=== PATIENT | female | born 1950 | race Caucasian/White ===

== ENCOUNTER → 2017-07-04 | Outpatient (CLI) | payer MEDICARE, BC ==
[~2017-07-04] MED LIST: ACET-1718 PO; ATOR10TA24 PO; ATOR20TA65 PO; CALC500T6 PO; DOCU-416 PO; HCTZ25 PO; HYDR12.556 PO; KET10 PO; LEV88 PO; LEVO-3 PO; LISI-355 PO; LOR5/325 PO; LUTE6TAB PO; METF-410 PO; MULT-1081 PO; OMEG-11 PO; OMEG500C5 PO; VITA1CAP46 PO
--- NOTE | 2017-07-08 16:37 | RADIOLOGY IMAGING REPORT ---
FACILITY: [facility] PATIENT NAME: XAVIER MARIN : [id number] MR: [id number] V: [id number] EXAM DATE: [id number] ORDERING PHYSICIAN: JOYCE COOMBS TECHNOLOGIST: Ivania Duron PROCEDURE:BILATERAL DIGITAL SCREENING MAMMOGRAM WITH CAD ASSISTED INTERPRETATION AND 3D BREAST TOMOSYNTHESIS. COMPARISON:Prior mammograms dated 12/01/14, 04/06/13 and 02/02/13. INDICATIONS:SCREENING FINDINGS: Moderately dense fibroglandular tissue is seen throughout the breasts. The parenchymal pattern has remained stable when allowing for difference in mammographic technique and patient positioning. There is no evidence of malignant appearing mass, malignant appearing calcification or other secondary sign of malignancy in either breast. DIAGNOSTIC CATEGORY 2--BENIGN FINDING. RECOMMENDATIONS: ROUTINE MAMMOGRAM AND CLINICAL EVALUATION. IMPRESSION: Bi-RADS 1: No significant abnormality is seen. Images were reviewed with R2CAD and 3D breast tomosynthesis. Dictated by: Tamara Holman M.D. on 07/04/2017 at 9:16 Transcribed by: YESSENIA on 07/04/2017 at 16:01 Approved by: Tamara Holman M.D. on 07/08/2017 at 16:36 [facility]
== END ==
LOC: MAMO 02:50
PROVIDERS: ATTEND Physician Assistant
DX: Z12.31 Encounter for screening mammogram for malignant neoplasm of breast (principal)
CPT/HCPCS: 77063; G0202; 77067

== ENCOUNTER → 2018-07-22 | Outpatient (CLI) | payer MEDICARE, BC ==
[~2018-07-22] MED LIST changes: -METF-410 PO; +METF-450 PO
--- NOTE | 2018-07-23 08:31 | RADIOLOGY IMAGING REPORT ---
FACILITY: [facility] PATIENT NAME: XAVIER MARIN : [id number] MR: [id number] V: [id number] EXAM DATE: ORDERING PHYSICIAN: JOYCE COOMBS TECHNOLOGIST: Mckenna Mcguire PROCEDURE:BILATERAL DIGITAL SCREENING MAMMOGRAM WITH CAD ASSISTED INTERPRETATION & 3D TOMOSYNTHESIS COMPARISON:Prior mammograms dated 07/04/17, 01/03/16, 12/01/14, 02/02/13 INDICATIONS:SCREENING FINDINGS: The breasts are heterogeneously dense which can obscure small masses. In the upper outer quadrant of the Left breast in the Left MLO view there has been development of a spiculated irregular high density mass for which spot compression views & Left breast Ultrasound is recommended. DIAGNOSTIC CATEGORY 0--INCOMPLETE: NEED ADDITIONAL IMAGING EVALUATION. RECOMMENDATIONS: ADDITIONAL MAMMOGRAPHIC VIEWS REQUIRED: LEFT BREAST. ULTRASOUND: LEFT BREAST. IMPRESSION: BIRADS 0: Incomplete, need additional imaging evaluation. There has been interval development of an irregular spiculated dense mass in the upper outer quadrant of the Left breast posterior third for which spot compression views & Left breast Ultrasound is recommended. Dictated by: Tamara Holman M.D. on 07/22/2018 at 14:28 Transcribed by: YISEL on 07/22/2018 at 14:32 Approved by: Tamara Holman M.D. on 07/23/2018 at 8:30 [facility]
== END ==
LOC: MAMO 00:45
PROVIDERS: ATTEND Physician Assistant
DX: Z12.31 Encounter for screening mammogram for malignant neoplasm of breast (principal); R92.8 Other abnormal and inconclusive findings on diagnostic imaging of breast
CPT/HCPCS: 77063; 77067

== ENCOUNTER → 2018-09-30 | Outpatient (CLI) | payer MEDICARE, BC ==
[~2018-09-30] MED LIST changes: +ASPI-1471 PO; +CALC-852 PO; +ESCI20TA38 PO
== END ==
LOC: US 00:50
PROVIDERS: ATTEND Internal Medicine Hematology & Oncology
DX: I35.8 Other nonrheumatic aortic valve disorders (principal); I34.0 Nonrheumatic mitral (valve) insufficiency
CPT/HCPCS: 93306

== ENCOUNTER 2018-11-17 10:56 | Inpatient (IN) | payer MEDICARE, BC ==
[~2018-11-17] VITALS: Ht 154.9 cm; Wt 71.7 kg
--- NOTE | 2018-11-17 11:04 | ER Report ---
History and Physical Time Seen By MD: 11:00 HPI/ROS This is a 67-year-old female presents to emergency department with CHIEF COMPLAINT: Possible Chemotherapy side effects HISTORY OF PRESENT ILLNESS: This is a very pleasant 67-year-old female presents to the emergency department for possible chemotherapy side effects. She is currently being treated for stage IIA left breast cancer. This is her 3rd round of chemotherapy. She is post-chemotherapy 8 days, adrimiacin and cytoxin. She has had low-grade fevers at home starting early this morning, the highest it was last night was 100.6. She has taken some Tylenol, she does not feel ill, af ebrile in the emergency department. She also states that she rubbed her nose and had a bloody nose for approximately 10 minutes, it did resolve. She also has some mild dysuria, no frequency or urgency. She also has some diarrhea, no blood noted in her stool. She also states it's not uncommon for her to have diarrhea and she is on metformin. She did look at the side effect sheet on the chemotherapy agents and some of the symptoms were noted on the sheet. She did contact the oncology clinic in [place] and they recommended coming to the emergency department for evaluation. She denies chest pain or shortness of breath. No nausea or vomiting. No rashes. She states she's been feeling great up until last night. REVIEW OF SYSTEMS: Constitutional: As above. Eyes: No discharge. ENT: No sore throat. Cardiovascular: No chest pain, no palpitations. Respiratory: No cough, no shortness of breath. Gastrointestinal: As above. Genitourinary: As above. Musculoskeletal: No back pain. Skin: No rashes. Neurological: No headache. Allergies: Coded Allergies: No Known Drug Allergies (Verified , 06/20/08) Home Meds Reported Medications Calcium Carbonate (CALCIUM) 500 Mg Tablet, 1500 MG PO 09/28/18 Escitalopram Oxalate (LEXAPRO) 20 Mg Tablet, 20 MG PO QDAY, TAB 09/28/18 Calcium Carbonate/Vitamin D3 (CALCIUM + VITAMIN D TABLET) 1 Each Tablet, 1 EACH PO BID 09/28/18 Aspirin (ASPIR 81) 81 Mg Tablet.dr, 81 MG PO QDAY, TAB 09/28/18 Levothyroxine Sodium (LEVOTHYROXINE SODIUM) 100 Mcg Tablet, 100 MCG PO QDAY, TAB 11/14/16 Anatone-3 Fatty Acids (FISH OIL) 500 Mg Capsule.dr, 1000 MG PO BID 11/14/16 Metformin Hcl (METFORMIN HCL) 500 Mg Tablet, 2 TAB PO BID, TAB 11/14/16 Lisinopril/Hydrochlorothiazide (LISINOPRIL-HCTZ 20-25 MG TAB) 1 Each Tablet, 1 EACH PO 11/14/16 Multivitamin (MULTI-DAY VITAMINS) 1 Each Tablet, 1 EACH PO QDAY 07/21/15 Atorvastatin Calcium (ATORVASTATIN CALCIUM) 20 Mg Tablet, 1 TAB PO HS, TAB 07/21/15 Lutein (LUTEIN) 6 Mg Tablet, 20 MG PO DAILY 03/03/13 Past Medical/Surgical History Patient has a past medical and surgical history of hypertension, hypercholesterolemia, colonoscopy with polyps removed, right breast biopsy, wrist fracture, toe fracture, but since the extraction, type II diabetes, hypothyroidism, depression, left breast cancer stage IIA, root canal. Reviewed Nurses Notes: Yes Hx Smoking: Yes (4-5 CIG PER WEEK) Smoking Status: Light Tobacco Smoker Hx Alcohol Use: Yes Constitutional Vital Sign - Last 24 Hours 11/17/18 11/17/18 11/17/18 11/17/18 11:06 12:00 12:30 13:00 Temp 98.2 Pulse 87 78 75 75 Resp 20 B/P (MAP) 113/57 122/88 (99) 116/76 (89) 110/70 (83) Pulse Ox 93 92 91 93 11/17/18 13:30 Pulse 77 B/P (MAP) 131/81 (98) Pulse Ox 90 Physical Exam General Appearance: The patient is alert, has no immediate need for airway protection and no signs of toxicity. Eyes: Pupils equal and round no pallor or injection. ENT, Mouth: Mucous membranes are moist. Respiratory: There are no retractions, lungs are clear to auscultation. Cardiovascular: Regular rate and rhythm. Grade 2 systolic murmur, no clicks or rubs. Gastrointestinal: Abdomen is soft and non tender, no masses, bowel sounds normal. Neurological: Alert and oriented 4. Moving all extremities. Following all c ommands. No focal neuro deficits. Skin: Warm and dry, no rashes. Musculoskeletal: Neck is supple non tender. Extremities are nontender, nonswollen and have full range of motion. DIFFERENTIAL DIAGNOSIS: After history and physical exam differential diagnosis was considered for sepsis, chemotherapeutic agent side effects, gastroenteritis, seasonal allergies, urinary tract infection. Medical Decision Making Data Points Result Diagram: 11/17/18 1207 11/17/18 1207 Laboratory Hematology Test 11/17/18 12:07 11/17/18 13:40 Red Blood Count 2.90 M/uL (4.17-5.56) Mean Corpuscular Volume 92.8 fL (80.0-96.0) Mean Corpuscular Hemoglobin 31.0 pg (26.0-33.0) Mean Corpuscular Hemoglobin Concent 33.5 g/dL (32.0-36.0) Red Cell Distribution Width 14.1 % (11.5-14.5) Mean Platelet Volume 6.7 fL (7.2-11.1) Neutrophils (%) (Auto) % (39.4-72.5) Lymphocytes (%) (Auto) % (17.6-49.6) Monocytes (%) (Auto) % (4.1-12.4) Eosinophils (%) (Auto) % (0.4-6.7) Basophils (%) (Auto) % (0.3-1.4) Nucleated RBC Relative Count (auto) /100WBC Neutrophils # (Auto) K/uL (2.0-7.4) Lymphocytes # (Auto) K/uL (1.3-3.6) Monocytes # (Auto) K/uL (0.3-1.0) Eosinophils # (Auto) K/uL (0.0-0.5) Basophils # (Auto) K/uL (0.0-0.1) Nucleated RBC Absolute Count (auto) K/uL Neutrophils % (Manual) 17 % (39.4-72.5) Band Neutrophils % 5 % Lymphocytes % (Manual) 52 % (17.6-49.6) Atypical Lymphocytes % 5 % Monocytes % (Manual) 18 % (4.1-12.4) Eosinophils % (Manual) 3 % (0.4-6.7) Basophils % (Manual) 0 % (0.3-1.4) Platelet Estimate Low Peripheral Blood Smear Yes Y/N Sodium Level 133 mmol/L (137-145) Potassium Level 3.3 mmol/L (3.5-5.0) Chloride Level 97 mmol/L (98-107) Carbon Dioxide Level 26 mmol/L (22-31) Blood Urea Nitrogen 7 mg/dl (7-18) Creatinine 0.60 mg/dl (0.52-1.04) Glomerular Filtration Rate Calc > 60.0 Random Glucose 86 mg/dl (75-110) Calcium Level 8.6 mg/dl (8.4-10.2) Total Bilirubin 0.5 mg/dl (0.2-1.3) Aspartate Amino Transf (AST/SGOT) 11 U/L (0-35) Alanine Aminotransferase (ALT/SGPT) 30 U/L (0-56) Alkaline Phosphatase 79 U/L (0-126) Total Protein 6.0 g/dl (6.3-8.2) Albumin 3.6 g/dl (3.5-5.0) Urine Color Straw Urine Clarity Clear Urine pH 7.0 pH (4.8-9.5) Urine Specific [place] 1.003 Urine Protein Negative mg/dL (NEGATIVE) Urine Glucose (UA) Negative mg/dL (NEGATIVE) Urine Ketones Negative mg/dL (NEGATIVE) Urine Blood Negative (NEGATIVE) Urine Nitrite Negative (NEGATIVE) Urine Bilirubin Negative (NEGATIVE) Urine Urobilinogen Negative mg/dL (0.2-1.9) Urine Leukocyte Esterase Negative (NEGATIVE) Urine RBC <1 /HPF (0-2/HPF) Urine WBC 4 /HPF (0-5/HPF) Urine Squamous Epithelial Cells Few /LPF (</=FEW) Urine Bacteria Negative /HPF (NONE-FEW) Urine Mucus None /HPF (NONE-FEW) Chemistry Test 11/17/18 12:07 11/17/18 13:40 White Blood Count 0.7 k/uL (4.5-11.0) Red Blood Count 2.90 M/uL (4.17-5.56) Hemoglobin 9.0 g/dL (12.0-16.0) Hematocrit 26.9 % (34.0-47.0) Mean Corpuscular Volume 92.8 fL (80.0-96.0) Mean Corpuscular Hemoglobin 31.0 pg (26.0-33.0) Mean Corpuscular Hemoglobin Concent 33.5 g/dL (32.0-36.0) Red Cell Distribution Width 14.1 % (11.5-14.5) Platelet Count 103 K/uL (150-450) Mean Platelet Volume 6.7 fL (7.2-11.1) Neutrophils (%) (Auto) % (39.4-72.5) Lymphocytes (%) (Auto) % (17.6-49.6) Monocytes (%) (Auto) % (4.1-12.4) Eosinophils (%) (Auto) % (0.4-6.7) Basophils (%) (Auto) % (0.3-1.4) Nucleated RBC Relative Count (auto) /100WBC Neutrophils # (Auto) K/uL (2.0-7.4) Lymphocytes # (Auto) K/uL (1.3-3.6) Monocytes # (Auto) K/uL (0.3-1.0) Eosinophils # (Auto) K/uL (0.0-0.5) Basophils # (Auto) K/uL (0.0-0.1) Nucleated RBC Absolute Count (auto) K/uL Neutrophils % (Manual) 17 % (39.4-72.5) Band Neutrophils % 5 % Lymphocytes % (Manual) 52 % (17.6-49.6) Atypical Lymphocytes % 5 % Monocytes % (Manual) 18 % (4.1-12.4) Eosinophils % (Manual) 3 % (0.4-6.7) Basophils % (Manual) 0 % (0.3-1.4) Platelet Estimate Low Peripheral Blood Smear Yes Y/N Glomerular Filtration Rate Calc > 60.0 Calcium Level 8.6 mg/dl (8.4-10.2) Total Bilirubin 0.5 mg/dl (0.2-1.3) Aspartate Amino Transf (AST/SGOT) 11 U/L (0-35) Alanine Aminotransferase (ALT/SGPT) 30 U/L (0-56) Alkaline Phosphatase 79 U/L (0-126) Total Protein 6.0 g/dl (6.3-8.2) Albumin 3.6 g/dl (3.5-5.0) Urine Color Straw Urine Clarity Clear Urine pH 7.0 pH (4.8-9.5) Urine Specific [place] 1.003 Urine Protein Negative mg/dL (NEGATIVE) Urine Glucose (UA) Negative mg/dL (NEGATIVE) Urine Ketones Negative mg/dL (NEGATIVE) Urine Blood Negative (NEGATIVE) Urine Nitrite Negative (NEGATIVE) Urine Bilirubin Negative (NEGATIVE) Urine Urobilinogen Negative mg/dL (0.2-1.9) Urine Leukocyte Esterase Negative (NEGATIVE) Urine RBC <1 /HPF (0-2/HPF) Urine WBC 4 /HPF (0-5/HPF) Urine Squamous Epithelial Cells Few /LPF (</=FEW) Urine Bacteria Negative /HPF (NONE-FEW) Urine Mucus None /HPF (NONE-FEW) Urinalysis Test 11/17/18 13:40 Urine Color Straw Urine Clarity Clear Urine pH 7.0 pH (4.8-9.5) Urine Specific [place] 1.003 Urine Protein Negative mg/dL (NEGATIVE) Urine Glucose (UA) Negative mg/dL (NEGATIVE) Urine Ketones Negative mg/dL (NEGATIVE) Urine Blood Negative (NEGATIVE) Urine Nitrite Negative (NEGATIVE) Urine Bilirubin Negative (NEGATIVE) Urine Urobilinogen Negative mg/dL (0.2-1.9) Urine Leukocyte Esterase Negative (NEGATIVE) Urine RBC <1 /HPF (0-2/HPF) Urine WBC 4 /HPF (0-5/HPF) Urine Squamous Epithelial Cells Few /LPF (</=FEW) Urine Bacteria Negative /HPF (NONE-FEW) Urine Mucus None /HPF (NONE-FEW) ED Course/Re-evaluation Clinical Indication for ER IV: Hydration, IV Access ED Course The patient was admitted to room. A history and physical were obtained. Differential diagnoses were considered. The patient's port was accessed. A CBC, CMP were obtained. CBC showing white count of 0.7, RBCs 2.9, hemoglobin and hematocrit 9 and 26. Neutrophil 17, percent bands 5. Sodium 133, potassium 3.3, normal UA.1 L normal saline bolus given. UA was collected. Total ANC is 154cells/microliter. Patient was updated on the results. I did speak with Deana Lerma the nurse practitioner that the patient has requested the oncology clinic as noted below, she recommended inpatient treatment with severe neutropenia and starting on prophylactic antibiotics once the cultures were obtained. I did speak with Dr. maribell mendoza, the hospitalist plant protection officer, he agreed with inpatient admission to the hospital. Patient was also agreeable with admission. Patient remained afebrile and nontoxic appearing while in the emergency department. 11/17/2018 1:09:40 pm I did speak with the patient's oncology team, specifically Deana Lerma the nurse practitioner in [place] at the [facility] oncology clinic, she recommended possible admission 24 hours observation, start on antibiotics, the Neulasta and should be "kicking in an approximately 2 days". 11/17/2018 1:47:[address] Llanes Still has accepted the patient into the hospitalist services. Decision to Disposition Date: November 17, 2018 Decision to Disposition Time: 13:43 Depart Departure Latest Vital Signs Vital Signs Date Time Temp Pulse Resp B/P (MAP) Pulse Ox O2 Delivery O2 Flow Rate FiO2 11/17/18 13:30 77 131/81 (98) 90 11/17/18 11:06 98.2 20 Impression: Primary Impression: Neutropenia Additional Impression: Stage II breast cancer Condition: Improved Disposition: Admitted from ER Referrals: JOYCE COOMBS PA-C (PCP) Problem Qualifiers Primary Impression: Neutropenia Neutropenia type: secondary to cancer chemotherapy Qualified Codes: D70.1 - Agranulocytosis secondary to cancer chemotherapy; T45.1X5A - Adverse effect of antineoplastic and immunosuppressive drugs, initial encounter Additional Impression: Stage II breast cancer Laterality: left Qualified Codes: C50.912 - Malignant neoplasm of unspecified site of left female breast ELIZABETH REDDY QUALITY ASSURANCE NURSE-BC November 17, 2018 11:04
[2018-11-17] MEDS ORDERED: NS(*) 0.9% 1000 ML BAG 1,000 ML IV ONE (11:30)
[2018-11-17] MEDS ORDERED: TETRACAIN/EPI/LIDO GEL 3ML SYR TP ONE (11:35)
[2018-11-17 12:27] LABS: PLATELET COUNT, AUTOMATED 103 K/uL (150-450)
[2018-11-17 14:23] VITALS: BP 113/60
[2018-11-17] MEDS ORDERED: LUTE20CA11 PO (14:33)
[2018-11-17] MEDS ORDERED: UBID100T PO (14:33)
[2018-11-17] MEDS ORDERED: NS(*) 0.9% 250 ML BAG 250 ML ONE (14:56)
[2018-11-17] MEDS ORDERED: LEVOFLOXACIN/D5W 750 MG/150 ML 150 ML IVPB ONE (15:00)
[2018-11-17] MEDS ORDERED: INFLUENZA VIRUS VAC 0.5ML SYR IM ONLY ONE (15:20)
[2018-11-17] MEDS ORDERED: FLUSH 10 ML SYR IVP PRN (15:20)
--- NOTE | 2018-11-17 16:19 | History & Physical ---
History of Present Illness Chief Complaint Fever History of Present Illness 67F admitted for fever with neutropenia. PMHx significant for breast Ca undergoing chemotherapy, HTN, DM. Reports single fever 100.6 at home. No other localizing infectious symptoms. Did just have diarrhea, though this is common after her treatment and generally self limited. She was noted to have 0.7 WBC on lab and ANC 160. She is at radha of WBC after chemotherapy and was given Neulasta, anticipate this would increase soon. History Problems: (1) Stage II breast cancer Status: Acute Home Meds Reported Medications Ubidecarenone (COENZYME Q10) 100 Mg Tablet, 100 MG PO QDAY 11/17/18 Lutein (LUTEIN) 20 Mg Capsule, 20 MG PO, CAPSULE 11/17/18 Escitalopram Oxalate (LEXAPRO) 20 Mg Tablet, 20 MG PO QDAY, TAB 09/28/18 Levothyroxine Sodium (LEVOTHYROXINE SODIUM) 100 Mcg Tablet, 100 MCG PO QDAY, TAB 11/14/16 [place]-3 Fatty Acids (FISH OIL) 500 Mg Capsule., 1999 INTLU PO BID 11/14/16 Metformin Hcl (METFORMIN HCL) 500 Mg Tablet, 1 TAB PO BID, TAB 11/14/16 Lisinopril/Hydrochlorothiazide (LISINOPRIL-HCTZ 20-25 MG TAB) 1 Each Tablet, 1 EACH PO 11/14/16 Atorvastatin Calcium (ATORVASTATIN CALCIUM) 20 Mg Tablet, 1 TAB PO HS, TAB 07/21/15 Discontinued Reported Medications Calcium Carbonate (CALCIUM) 500 Mg Tablet, 1500 MG PO 09/28/18 Calcium Carbonate/Vitamin D3 (CALCIUM + VITAMIN D TABLET) 1 Each Tablet, 1 EACH PO BID 09/28/18 Aspirin (ASPIR 81) 81 Mg Tablet., 81 MG PO QDAY, TAB 09/28/18 Multivitamin (MULTI-DAY VITAMINS) 1 Each Tablet, 1 EACH PO QDAY 07/21/15 Lutein (LUTEIN) 6 Mg Tablet, 20 MG PO DAILY 03/03/13 Allergies: Coded Allergies: No Known Drug Allergies (Verified , 06/20/08) Hx Smoking: Yes (4-5 CIG PER WEEK) Smoking Status: Light Tobacco Smoker Caffeine Intake: Coffee Caffeine/Cups Per Day: 3 CUPS PER DAY Hx Alcohol Use: Yes Hx Substance Use Disorder: No Social Drug Use: Never Review of Systems All Systems Reviewed/Normal: Yes, Except as Noted Constitutional: Fever Respiratory: No Shortness of Breath, No Cough Gastrointestinal: No Nausea, No Vomiting; Diarrhea Musculoskeletal: No Pain Exam Vital Signs Vital Signs Date Time Temp Pulse Resp B/P (MAP) Pulse Ox O2 Delivery O2 Flow Rate FiO2 11/17/18 14:42 95 11/17/18 14:36 Room Air 11/17/18 14:23 98.2 77 16 113/60 (77) General Appearance: Alert, Awake, No Acute Distress Neuro: No Gross deficits Cardiovascular: Normal Rhythm & Peripheral Pulses Respiratory: No Respiratory Distress GI: Abd Soft and Non-Tender Musculoskeletal: No Weakness/Pain Extremities: Soft and Non Tender, Warm, Pulses, Perfused Integumentary: Skin Intact without Lesion / Mass Medical Decision Making Data Points Result Diagram: 11/17/18 1207 11/17/18 1207 Assessment and Plan Problems: (1) Neutropenic fever Status: Acute Assessment & Plan: Reported to 100.6 last night or early am. Begin IV Levaquin with change to PO. If afebrile could discharge home and complete 5 day course antibiotic. (2) Stage II breast cancer Status: Acute Assessment & Plan: Undergoing chemotherapy. (3) DM (diabetes mellitus) Assessment & Plan: On chronic metformin. (4) HTN (hypertension) Assessment & Plan: On chronic lisinopril/HCTZ. (5) Pancytopenia Assessment & Plan: Secondary to chemotherapy. Will hold anticoagulant and ambulate early given platelet suppression Venous Thromboembolism Antithrombotics Is Pt On Any Antithrombotics?: No (early ambulation 2/2 thrombocytopenia.) Exam Sepsis Risk: No Definite Risk Problem Qualifiers (1) Stage II breast cancer: Laterality: left Qualified Codes: C50.912 - Malignant neoplasm of unspecified site of left female breast RENEE DOSHI DO November 17, 2018 16:18
[2018-11-17] MEDS: metFORMIN HCL 500 MG TAB PO SCH (16:54)
[2018-11-17] MEDS: ACETAMINOPHEN 325 MG TAB PO PRN (20:19)
[2018-11-17 20:20] VITALS: BP 114/55
[2018-11-17] MEDS ORDERED: ATORVASTATIN 10 MG TAB PO SCH (21:00)
[2018-11-18 00:10] VITALS: BP 109/46
[2018-11-18] MEDS ORDERED: LEVOTHYROXINE SOD 0.1 MG TAB PO SCH (06:00)
[2018-11-18] MEDS: ACETAMINOPHEN 325 MG TAB PO PRN (06:28)
[2018-11-18 06:50] LABS: PLATELET COUNT, AUTOMATED 100 K/uL (150-450)
[2018-11-18 06:55] VITALS: BP 121/56
[2018-11-18] MEDS: metFORMIN HCL 500 MG TAB PO SCH (08:17)
[2018-11-18] MEDS ORDERED: ESCITALOPRAM OXALATE 10 MG TAB PO SCH (09:00)
[2018-11-18] MEDS ORDERED: HYDROCHLOROTHIAZIDE 25 MG TAB PO SCH (09:00)
[2018-11-18] MEDS ORDERED: LISINOPRIL 20 MG TAB PO SCH (09:00)
[2018-11-18 09:08] VITALS: Ht 154.9 cm; Wt 71.7 kg
--- NOTE | 2018-11-18 11:00 | Hospitalist Depart ---
Discharge Summary Reason for Hosp/Final Diag: (1) Neutropenic fever Status: Acute Hospital Course & Plan: Reported to 100.6 11/16 evening. She was placed on IV Levaquin upon admission. She has been afebrile throughout admission. Her ANC is now 1000, upon admission was 160. She will be sent home with Levaquin for four additional days for a treatment course of 5 days. She had no source of infection identified throughout admission. (2) Stage II breast cancer Status: Acute Hospital Course & Plan: Undergoing chemotherapy. (3) DM (diabetes mellitus) Hospital Course & Plan: On chronic metformin. (4) HTN (hypertension) Hospital Course & Plan: On chronic lisinopril/HCTZ. (5) Pancytopenia Hospital Course & Plan: Secondary to chemotherapy. Will hold anticoagulant and ambulate early given platelet suppression Departure Latest Vital Signs Vital Signs 11/18/18 11/18/18 06:55 06:59 Temp 98.5 Pulse 76 Resp 14 B/P (MAP) 121/56 (77) Pulse Ox 95 O2 Delivery Room Air Weight (Pounds): 158 Result Diagram: 11/18/1861711/18/18617 Condition: Improved Discharge: Home, Self Care Discharge Instructions Home Meds Active Scripts Levofloxacin 750 Mg Tab (LEVOFLOXACIN 750 MG TAB) 750 Mg Tablet, 750 MG PO QDAY, #4 TAB Prov:JULIANA BRICE Dewayne [employer] 11/18/18 Reported Medications Ubidecarenone (COENZYME Q10) 100 Mg Tablet, 100 MG PO QDAY 11/17/18 Lutein (LUTEIN) 20 Mg Capsule, 20 MG PO, CAPSULE 11/17/18 Escitalopram Oxalate (LEXAPRO) 20 Mg Tablet, 20 MG PO QDAY, TAB 09/28/18 Levothyroxine Sodium (LEVOTHYROXINE SODIUM) 100 Mcg Tablet, 100 MCG PO QDAY, TAB 11/14/16 [place]-3 Fatty Acids (FISH OIL) 500 Mg Capsule., 1999 INTLU PO BID 11/14/16 Metformin Hcl (METFORMIN HCL) 500 Mg Tablet, 1 TAB PO BID, TAB 11/14/16 Lisinopril/Hydrochlorothiazide (LISINOPRIL-HCTZ 20-25 MG TAB) 1 Each Tablet, 1 E ACH PO 11/14/16 Atorvastatin Calcium (ATORVASTATIN CALCIUM) 20 Mg Tablet, 1 TAB PO HS, TAB 07/21/15 Discontinued Reported Medications Calcium Carbonate (CALCIUM) 500 Mg Tablet, 1500 MG PO 09/28/18 Calcium Carbonate/Vitamin D3 (CALCIUM + VITAMIN D TABLET) 1 Each Tablet, 1 EACH PO BID 09/28/18 Aspirin (ASPIR 81) 81 Mg Tablet.dr, 81 MG PO QDAY, TAB 09/28/18 Multivitamin (MULTI-DAY VITAMINS) 1 Each Tablet, 1 EACH PO QDAY 07/21/15 Lutein (LUTEIN) 6 Mg Tablet, 20 MG PO DAILY 03/03/13 Diet: Regular Activity: As Tolerated Special Instructions: Follow up with Cancer Center in 1 week. Take Levaquin for 4 additional days. Copies to: JOYCE COOMBS PA-C ; Venous Thromboembolism Antithrombotics Is Pt On Any Antithrombotics?: No (early ambulation 2/2 thrombocytopenia.) Problem Qualifiers (1) Stage II breast cancer: Laterality: left Qualified Codes: C50.912 - Malignant neoplasm of unspecified site of left female breast (2) HTN (hypertension): Hypertension type: essential hypertension Qualified Codes: I10 - Essential (primary) hypertension JULIANA BRICE November 18, 2018 11:00
[2018-11-18] MEDS ORDERED: LEVO750T27 PO (11:01)
[2018-11-18] MEDS ORDERED: HEPARIN FLSH (PORT) 500 UN/5ML ONE (11:22)
[2018-11-18] MEDS ORDERED: LEVOFLOXACIN 750 MG TAB PO SCH (15:00)
== END 2018-11-18 12:40 | disposition home or self-care (01) | DRG 810 ==
LOC: ER 11:08 → MED 13:59
PROVIDERS: ADMIT Internal Medicine; ATTEND Internal Medicine
DX: D70.1 Agranulocytosis secondary to cancer chemotherapy (principal); E11.9 Type 2 diabetes mellitus without complications; I10 Essential (primary) hypertension; T45.1X5A Adverse effect of antineoplastic and immunosuppressive drugs, initial encounter; C50.912 Malignant neoplasm of unspecified site of left female breast; E78.00 Pure hypercholesterolemia, unspecified; E03.9 Hypothyroidism, unspecified; F32.9 Major depressive disorder, single episode, unspecified; F17.210 Nicotine dependence, cigarettes, uncomplicated; Z79.84 Long term (current) use of oral hypoglycemic drugs
CPT/HCPCS: 81001; 82040; 82247; 82310; 82374; 82435; 82565; 82947; 84075; 84132; 84155; 84295; 84450; 84460; 84520; 85025; 87040; 87077; 87088; 87186; J1642; J1956; J7030; J7050

== ENCOUNTER → 2018-12-01 | Outpatient (CLI) | payer MEDICARE, BC ==
[2018-11-18 09:08] VITALS: BMI 29.9
[~2018-12-01] MED LIST changes: +LEVO750T27 PO; +LUTE20CA11 PO; +UBID100T PO
== END ==
LOC: LAB 14:20
DX: E87.6 Hypokalemia (principal)
CPT/HCPCS: 36415; 82310; 82374; 82435; 82565; 82947; 84132; 84295; 84520

== ENCOUNTER 2018-12-21 08:46 | Outpatient (RCR) | payer MEDICARE, BC ==
[2018-09-28 10:25] VITALS: BP 143/62
--- NOTE | 2018-09-28 13:36 | NUR ---
SW introduced the pt to the wig/prosthetic boutique. Pt may select a wig and/or prosthesis at another time.
--- NOTE | 2018-09-29 20:11 | ONCOLOGY CONSULTATION ---
EVENT DATE: September 28, 2018 CHIEF COMPLAINT/REASON FOR CONSULTATION Ms. Chung is a very pleasant 67-year-old female with stage IIA, ER/VA-positive, HER2/radha-normal breast cancer of the left breast. HISTORY OF PRESENT ILLNESS Edu presents for initial consultation. Please see her Oncology History below for more details. The patient is about to begin dose-dense AC, followed by Taxol assuming her echo is normal. The echo is scheduled for this coming Friday. She has port placement scheduled for tomorrow. She overall feels well. She has chemotherapy education coming up, and I reviewed the potential risk factors of Adriamycin and neuropathy of taxanes, as well as all potential side effects we would typically see with AC to T. These are including, but not limited to myelosuppression, nausea, vomiting, mouth sores, diarrhea, neutropenic fever, alopecia, neuropathy, cardiac issues, skin rash, allergic reaction, dystrophic nail changes, and other unforeseen issues that could be quite serious. We had an extensive discussion today about her history and her goals with care. She plans to start her therapy in [place] and may consider transitioning her therapy to [place] at some point during her care plan. I stressed to her that I am happy to have her treatment here or there, it is whatever she would prefer. I do agree with Dr. Marquis that if she does make that transition from [place] to [place], that we would like to try and do that once given concerns with insurance coverage with transferring back and forth. PAST MEDICAL HISTORY 1. Type 2 diabetes. 2. BARRAZA. 3. Hyperlipidemia. 4. Heart murmur. 5. Hypothyroidism. PAST ONCOLOGY HISTORY Patient was diagnosed with an ER/VA-positive, HER2/radha-normal left-sided breast cancer in early 2018. She had a mastectomy with sentinel lymph node biopsy on September 03, 2018. Two of six lymph nodes were positive with this sentinel lymph node biopsy. There was extracapsular extension. Her MammaPrint was high. Therefore, her risk of recurrence was quite high, but we could reduce that profoundly with the addition of endocrine therapy, chemotherapy, and adjuvant radiation therapy. She has reviewed this previously with Dr. Marquis, but it was overwhelming, and we reviewed much of it again today. SOCIAL HISTORY Patient has a long-time significant other, Colby, and they live here in [place]. No children. She has presented with her sister previously. She has completely stopped smoking after smoking approximately a half pack per day for many years. Infrequent alcohol use. She is a retired teacher, retiring in 2011. FAMILY HISTORY Remarkable for mother with breast cancer at age 82. She has numerous other family members with cancer as well. REVIEW OF SYSTEMS CONSTITUTIONAL: No fevers, chills. Positive weight loss, mostly intentional as well as related to anxiety. HEENT: No headache, vision changes. CARDIOVASCULAR: No chest pain, dyspnea on exertion, edema. RESPIRATORY: No shortness of breath, wheeze, cough. GASTROINTESTINAL: No nausea, vomiting, diarrhea, constipation. GENITOURINARY: No dysuria, hematuria. MUSCULOSKELETAL: No weakness, joint pain. PSYCHIATRIC: No anxiety, depression. ENDOCRINE: No heat or cold intolerance. SKIN: No concerning rashes or lesions. Remainder of 14-point review of systems otherwise negative. PHYSICAL EXAMINATION VITAL SIGNS: Blood pressure 143/62, pulse 82, respiratory rate 16, temperature 97.7 Fahrenheit, oxygen saturation 94% on room air. Height 153.5 cm. Weight 70 kg. Pain 0/10. Fatigue 0/10. GENERAL: Stable condition, resting comfortably in the chair. HEENT: Normocephalic, atraumatic. LYMPHATIC: No appreciable cervical, supraclavicular, or axillary adenopathy. BREASTS: Complete of the left breast shows mastectomy scars that are healing well. There is a tiny seroma appreciated in the bottom of the left axilla that will likely reabsorb. CARDIOVASCULAR: Regular rate and rhythm. LUNGS: Clear to auscultation bilaterally. ABDOMEN: Soft, obese, nontender, nondistended. EXTREMITIES: No clubbing, cyanosis, or edema. Remainder of physical examination otherwise unremarkable. IMPRESSION/REPORT/PLAN Ms. Chung is a very pleasant 67-year-old female with the following: Stage IIA left-sided breast cancer, treated with mastectomy, and recommend adjuvant chemotherapy, hormonal therapy, and radiation therapy. We had an extensive discussion about the diagnosis, natural history, therapy options for Ms. Chung. She has a neighbor who had an early stage, node-negative breast cancer who did not require chemotherapy, and her friends do not understand why Dr. Marquis and I are making this recommendation. We again reviewed her high MammaPrint, her sentinel lymph node positive findings, as well as data indicating that we will greatly increase her risk of cure with all of the combined modality adjuvant therapies including chemotherapy. After discussion, she would like to move forward with this. As noted above, we discussed the side effects with this proposed regimen. This is assuming that her echocardiogram looks well this coming Friday. She would like to begin her care under the care of Dr. Marquis in [place], but is thinking she may want to transition her treatment up to [place] at some point. We are happy to simply provide supportive care or can take over her chemotherapy treatment. It is completely up to the patient. I answered all of her many questions. Dr. Marquis, thank you very much for the consultation of this very kind patient of yours. Please feel free to contact me if you have any questions or concerns. We will continue to work with you throughout this process. BILLING New patient level 5. Total time 60 minutes, counseling time 45. High risk, high complexity. MTDD
[2018-10-07] MEDS: HEPARIN FLSH (PORT) 500 UN/5ML IVP PRN (10:21)
--- NOTE | 2018-10-28 16:19 | NUR ---
Spoke with patient regarding where she wants to continue her chemotherapy. Pt stated she will continue with her AC in [facility] but will call us after her last cycle to schedule Taxol infusions here in [place].
[2018-11-18 09:08] VITALS: Ht 153.7 cm; Wt 70.0 kg
[~2018-12-21] VITALS: Ht 153.7 cm; Wt 70.0 kg
[~2018-12-21 08:46] MED LIST changes: +ALTEPLASE RECOMB 2 MG VIAL IVP PRN; +DEXTROSE 5%(*) 100 ML BAG 100 ML IVPB PRN; +LIDOCAINE/SOD BICARB 8.4% SYR ID PRN; +NS(*) 0.9% 100 ML BAG 100 ML IVPB PRN; +NS(*) 0.9% 500 ML BAG 500 ML IV PRN; +WATER FOR INJ,STERILE 20 ML IVP PRN
[2018-12-21 08:51] VITALS: BP 116/68
[2018-12-21 09:18] LABS: PLATELET COUNT, AUTOMATED 299 K/uL (150-450)
[2018-12-21] MEDS ORDERED: diphenhydrAMINE 50 MG/ML VIAL IVP PRN (10:10)
[2018-12-21] MEDS ORDERED: DEXAMETHASONE SOD PHOS 10MG/ML IVP PRN (10:10)
[2018-12-21] MEDS ORDERED: FAMOTIDINE 10 MG/ML SDV IV PRN (10:10)
[2018-12-21] MEDS ORDERED: PACLITAXEL IV ONE (10:15)
[2018-12-21] MEDS ORDERED: NS 0.9% IV ONE (10:15)
[2018-12-21 12:07] VITALS: BP 120/68
[2018-12-21] MEDS: HEPARIN FLSH (PORT) 500 UN/5ML IVP PRN (12:08)
[2018-12-21] MEDS ORDERED: METF-450 PO (13:39)
[2018-12-21] MEDS ORDERED: ESCI20TA38 PO (13:41)
[2018-12-21] MEDS ORDERED: UBID100C9 PO (13:47)
[2018-12-21] MEDS ORDERED: LUTE20TA PO (13:47)
[2018-12-21] MEDS ORDERED: ATOR20TA65 PO (13:47)
[2018-12-21] MEDS ORDERED: TRIA15CR40 TP (13:47)
[2018-12-21] MEDS ORDERED: CHOL10005 PO (13:47)
--- NOTE | 2018-12-22 05:26 | ONCOLOGY FOLLOW UP NOTE ---
EVENT DATE: December 21, 2018 CHIEF COMPLAINT Followup for breast cancer. HISTORY OF PRESENT ILLNESS Patient is a 67-year-old female who is being seen today for cycle #3 of Taxol. She has received her previous treatment in [place], but as she lives in [place], she will receive the remainder of the treatments here. Overall, she is doing well. She does have the expected fatigue, but is trying to stay active. She has no constipation, but describes intermittent diarrhea. She occasionally has to use Imodium. Potassium has been slightly low, but she is working on high-potassium foods. She denies any peripheral neuropathy and feels she is overall doing well. She has been followed by Dr. Marquis at [place]. ONCOLOGY HISTORY Patient is a 67-year-old female who was diagnosed with an ER/GA-positive, HER2/radha-negative left breast cancer in early 2018. She underwent left mastectomy with sentinel lymph node biopsy on 09/03/18. Two of six of the lymph nodes were positive with extracapsular extension. Mammaprint was high. Treated with dose-dense Adriamycin and Cytoxan from 10/12/18 through 11/23/18. Began weekly Taxol on 12/07/18. Genetic testing was negative for any mutations. PAST MEDICAL HISTORY 1. Left breast cancer, August 2018. 2. Type 2 diabetes. 3. BARRAZA. 4. Hyperlipidemia. 5. Heart murmur. 6. Hypothyroidism. PAST SURGICAL HISTORY 1. Multiple breast biopsies, benign. 2. Left mastectomy, 09/03/18. FAMILY HISTORY Mother had breast cancer at age 82. Maternal cousin had pancreatic cancer. Maternal grandmother had uterine cancer at age 84. Father had bladder cancer at age 80. Sister was diagnosed with melanoma in her 60s. As above, genetic testing was negative for any mutations. SOCIAL HISTORY Patient lives with her significant other, Colby. She has no children. She is no longer working. She smoked half a pack a day for many years, but completely stopped. Infrequent alcohol use. She retired as a teacher in 2011. MEDICATIONS 1. Levothyroxine 100 mcg daily. 2. Lisinopril/hydrochlorothiazide 20/25 mg daily. 3. Metformin 500 mg, two daily. 4. Fish oil. 5. Vitamin D3 2000 international units. 6. Lexapro 20 mg. 7. Vitamin B6 100 mg b.i.d. 8. Atorvastatin 20 mg daily. 9. Lutein 20 mg. 10. CoQ10 100 mg. ALLERGIES No known drug allergies. REVIEW OF SYSTEMS A 12-point review of systems was performed and is negative except as stated above. PHYSICAL EXAMINATION VITAL SIGNS: Weight 70 kg, BP 116/68, P 80, R 16, temp 99, O2 sat 95%. GENERAL: Patient is a well-developed, well-nourished female in no acute distress. HEAD: Normocephalic, atraumatic. EYES: Sclerae anicteric. MOUTH: Slightly dry mucous membranes. No lesions. NECK: Supple. No palpable adenopathy. LUNGS: Clear bilaterally. CARDIOVASCULAR: Heart rate regular, 80 per minute, without murmur. ABDOMEN: Soft, nontender, with active bowel sounds. EXTREMITIES: No edema. NEURO: Nonfocal. LABORATORY CBC today reveals a WBC of 3.0, ANC of 2.0, hemoglobin 8.0, hematocrit 23.9, platelets 299,000. CMP is within normal limits except for a slightly decreased potassium of 3.4. IMPRESSION The patient is a 67-year-old female diagnosed with a stage IIA, ER/GA positive, HER2/radha negative left breast cancer. Underwent left mastectomy on 09/03/18 with two of six nodes positive with extracapsular extension. Mammaprint testing was high. Treated with four cycles of dose-dense AC from 10/12/18 through 11/23/18. Began weekly Taxol on 12/07/18. PLAN 1. Cycle #3 of Taxol. She is tolerating this well. She denies any peripheral neuropathy. 2. Leukopenia. Mild. ANC today is stable at 2.0. Will continue to monitor. 3. Anemia. Hemoglobin today is 8.0. On review of her labs from [place], she has been in the 8 g range. I will check iron studies, B12 and folate to rule out any correctable cause, but suspect much of this is chemotherapy related. She does have some mild fatigue, but no significant issues. 4. Fatigue. Mild. She is trying to remain as active as possible. 5. Followup in one week for cycle #4 of treatment. Will continue to monitor hemoglobin. MTDD
== END 2018-12-24 ==
LOC: ONC 08:46
PROVIDERS: ATTEND Internal Medicine
DX: Z51.11 Encounter for antineoplastic chemotherapy (principal); C50.912 Malignant neoplasm of unspecified site of left female breast; Z17.0 Estrogen receptor positive status [ER+]; Z87.891 Personal history of nicotine dependence
CPT/HCPCS: 82607; 82728; 82746; 83540; 83550; 85025; 96523; G0463; J1100; J1200; J1642; J3490; J7050; J9267; 82040; 82247; 82310; 82374; 82435; 82565; 82947; 84075; 84132; 84155; 84295; 84450; 84460; 84520; 99202; 99212; S0028

== ENCOUNTER → 2018-12-28 | Outpatient (CLI) | payer MEDICARE, BC ==
[2018-11-18 09:08] VITALS: BMI 29.9
[~2018-12-28] MED LIST changes: -ALTEPLASE RECOMB 2 MG VIAL IVP PRN; +CHOL10005 PO; -DEXTROSE 5%(*) 100 ML BAG 100 ML IVPB PRN; -LIDOCAINE/SOD BICARB 8.4% SYR ID PRN; +LUTE20TA PO; -NS(*) 0.9% 100 ML BAG 100 ML IVPB PRN; -NS(*) 0.9% 500 ML BAG 500 ML IV PRN; +TRIA15CR40 TP; +UBID100C9 PO; -WATER FOR INJ,STERILE 20 ML IVP PRN
== END ==
LOC: SPU 09:29
PROVIDERS: ATTEND Physician Assistant
DX: E11.9 Type 2 diabetes mellitus without complications (principal)
CPT/HCPCS: 82465; 83036; 83718; 84443; 84478

== ENCOUNTER 2019-02-23 12:30 | Outpatient (RCR) | payer MEDICARE, BC ==
[2018-11-18 09:08] VITALS: Wt 71.0 kg
[2019-02-23 12:52] VITALS: BP 160/78
--- NOTE | 2019-02-23 22:16 | TOBIN CONSULT ---
EVENT DATE: February 23, 2019 CHIEF COMPLAINT/REASON FOR VISIT Patient is referred for discussion of radiation therapy to the chest wall regional lymphatics for recently diagnosed breast malignancy with history listed below. ONCOLOGY HISTORY 1. Invasive ductal carcinoma of the left breast, status post simple mastectomy on 09/03/[address] Muna Paez at [facility]. 2. Tumor size 4.4 cm, grade 3. Unifocal 10 mm DCIS. Margins clear. Tumor is metastatic, two of six lymph nodes. Extracapsular extension is identified. Largest tumor deposit in the lymph node is 1.2 cm. 3. Tumor is ER receptor positive at 91% to 96%, IL receptor positive 44% to 77%, HER2 1+, Ki-67 39% to 71%. 4. MammaPrint high-risk luminal type B. 5. Status post AC chemotherapy. Taxol ongoing therapy with completion date expected 03/01/19. 6. Stage T2 N1a M0. HISTORY OF PRESENT ILLNESS This is a pleasant 68-year-old lady who was referred to me by the medical oncology team for discussion of radiation therapy options for the recently diagnosed locally advanced breast malignancy. The patient underwent screening mammography earlier this year with an abnormal radiographic appearance of the left breast in the upper-outer quadrant. There is a spiculated irregular density which was not appreciated on prior studies June 2017 and further back. Ultrasound and biopsy were then recommended. The patient elected to have the procedure in [place], and diagnosis was quickly established of invasive ductal carcinoma. The patient then opted to proceed with mastectomy. No postoperative complications. The patient denies any present headaches or persistent bone pain. She was seen initially by Dr. Marquis, and then chemotherapy delivery was coordinated with Dr. Montgomery locally in the [facility] for patient convenience. The patient has tolerated the systemic chemotherapy course reasonably well. She did have some fatigue with the last cycle of AC. 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 Patient is being seen for initial consultation, pathology and film review. MEDICATIONS 1. Atorvastatin. 2. Vitamin D3. 3. Lexapro. 4. Levothyroxine. 5. Lisinopril/hydrochlorothiazide. 6. Lutein. 7. Metformin. 8. [place]-3. 9. Triamcinolone acetonide. 10. Coenzyme Q10. ALLERGIES No known drug allergies. MEDICAL HISTORY 1. Left breast carcinoma, diagnosed 08/25. 2. Type 2 diabetes. 3. Hyperlipidemia. 4. History of hypothyroidism. 5. BARRAZA. SURGICAL HISTORY 1. Previous benign right-sided breast biopsies. 2. Left mastectomy 09/03/18. FAMILY HISTORY Father had bladder carcinoma at age 80. Mother had breast carcinoma at age 82. One sister had melanoma in her 60s. The patient states she is BRCA negative. One maternal cousin had pancreatic cancer. Maternal grandmother had uterine carcinoma. SOCIAL HISTORY Patient is . She is accompanied by her good friend, Jesi, today. She did smoke a half pack per day for most of her life, but stopped smoking in August. She is a retired teacher in 2011. No children. COMPREHENSIVE REVIEW OF SYSTEMS Entirely negative with occasional difficulty with concentration, neuropathy in the hands and feet. PHYSICAL EXAMINATION GENERAL: Pleasant 68-year-old lady of medium frame. VITALS: BP 160/78, pulse 77, respirations 16, O2 sat 94%. Weight 157. LYMPHATICS: No peripheral lymphadenopathy noted. LUNGS: Clear to auscultation bilaterally. HEART: Sounds regular with grade 2 systolic murmur. (Echo 09/30/18: Left ventricular ejection fraction 65% to 70%, mild AR, aortic valve trileaflet, sclerotic, without significant stenosis.) BREASTS: Right breast examination revealed no suspicious findings. Medium, slightly larger breast. Left chest wall inspection reveals no nodularity. Mastectomy scar is well healed at this time. No tenderness. ABDOMEN: Soft. No gross organomegaly. NEUROLOGIC: No focal motor weakness. IMPRESSION This is a 68-year-old lady who was recently diagnosed with locally advanced grade 3 invasive ductal carcinoma of the left breast. By the patient's history, the lesion was not palpable. Mammogram revealed this spiculated mass to be in the upper-outer quadrant, posterior third of the left breast. The original screening mammography date was 07/22/18. Tumor, unfortunately, is metastatic to two of six lymph nodes in the left axilla, and extracapsular extension is appreciated. Her AJCC-8 staging is IIA. RECOMMENDATIONS My recommendation would be to proceed with radiation planning, diagnostic and treatment planning CT scan in three weeks. Updated laboratory studies will be obtained at that time as well. I would then proceed with defining the target volume to the left chest wall and regional lymphatics. The radiation course would be predominantly delivered with tangential photons with a potentially matched field to the supraclavicular fossa and infraclavicular fossa lymph nodes. Radiation therapy program will be delivered over a time frame of approximately seven weeks with field reductions performed at five weeks and six weeks. I reviewed the pathology and imaging studies with the patient today in the room and discussed potential acute late side effects of treatment. In general, treatment is well tolerated, although there can be fatigue, and certainly, there is the possibility of acute erythema reaction. Risk of lymphedema is extremely low with modern treatment techniques. All questions were answered to her satisfaction and signed consent obtained for treatment today. As stated above, I will revisit with the patient in approximately four weeks and start the radiation program potentially week 5 following the taxane-based chemotherapy program. Thank you for the referral and opportunity to consult on the patient today. KENDALL
[2019-02-26] MEDS ORDERED: LISI20TA29 PO (20:23)
== END 2019-02-26 ==
LOC: RAON 12:30
PROVIDERS: ATTEND Radiology Radiation Oncology
DX: C50.912 Malignant neoplasm of unspecified site of left female breast (principal); C77.3 Secondary and unspecified malignant neoplasm of axilla and upper limb lymph nodes; Z87.891 Personal history of nicotine dependence